=== PATIENT | female | born 1960 | race Caucasian/White ===

== ENCOUNTER 2016-11-06 11:17 | Emergency (ER) | payer MEDICAID ==
[~2016-11-06] VITALS: Ht 167.6 cm; Wt 65.0 kg
[~2016-11-06 11:17] MED LIST: ADDE30XR PO; CYCL1TAB29 PO; CYCL5TAB PO; ESTR1TAB PO; FLUO10TA PO; FLUO20CA4 PO; GABA300C5 PO; HYDR-3366 PO; MORP1CAP79 PO; NITR1CAP36 PO; PROT40TA PO; ZOCO40TA PO
[2016-11-06 11:20] VITALS: BP 143/99; PULSE 99; RESP 20; TEMP 98.3; O2SAT 97
[2016-11-06] MEDS ORDERED: KETOROLAC TROMETHAMINE 60 MG/2 ML (IM) VIAL IM ONE (11:45)
--- NOTE | 2016-11-06 11:53 | PD ---
HPI Chief Complaint: Injury Time Seen by Provider: 11:30 Travel History International Travel<30 days: No Contact w/Intl Traveler<30days: No Traveled to known affect area: No History of Present Illness HPI Patient is a 56 year old female who presented to emergency department for evaluation of right forearm pain. Patient denies any specific injury or trauma but states she could've bumped her arm on her shelf over her bed the night before last. Patient reports her bones break easily secondary to chemotherapy that she was on for rectal cancer. She states she has been applying cool compresses and took her Lortab at home with no relief of symptoms. She reports the pain as a 6 out of 10 and describes it as aching and sore. PFSH Past Medical History ADHD: Yes Arthritis: No Asthma: Yes Autoimmune Disease: No Blood Disorders: No Bipolar Disorder: Yes Anxiety: Yes Depression: Yes Heart Rhythm Problems: No Cancer: Yes (THYROID,OVARIAN,BASAL CELL SKIN,SQUAMOUS CELL RECTAL) Cardiac Catheterization: Yes High Cholesterol: Yes Chemotherapy: Yes Chest Pain: No Congestive Heart Failure: No COPD: Yes Cerebrovascular Accident: No Diabetes: No Diminished Hearing: No Endocrine: No GERD: Yes Glaucoma: No Headaches: No Hepatitis: Yes (c) Hiatal Hernia: No Hypertension: Yes Immune Disorder: No Kidney Stones: No Musculoskeletal: No Reproductive: No Respiratory: Yes Integumentary: Yes (EhlersDanlos syndrome ) Immunizations Current: Yes Migraines: Yes Myocardial Infarction: No Pancreatitis: Yes Radiation Therapy: Yes Renal Failure: No Seizures: No Sickle Cell Disease: No Sleep Apnea: No Thyroid Disease: Yes Ulcer: No PNEUMOCCOCAL Vaccine (Year): 2 Menopausal: Yes : 2 Para: 1 Miscarriage: 1 Past Surgical History Abdominal Surgery: Yes (EXPLORE LAP 1981) AICD: No Appendectomy: Yes Body Medical Devices: CHEMO PORT; (REMOVED 02/11/2011) Cardiac Surgery: No Section: Yes Cholecystectomy: Yes Coronary Artery Bypass Graft: No Ear Surgery: No Endocrine Surgery: Yes (THYROIDECTOMY) Eye Surgery: No Gynecologic Surgery: Yes (BILATERAL OOPHRECTOMY,SALPINGECTOMY) Hysterectomy: Yes (COMPLETE) Insulin Pump: No Joint Replacement: Yes (RIGHT KNEE SURGERY 2001) Neurologic Surgery: Yes (HEAD INJURY WITH left ORBITAL FX SECONDARY TO HORSE KICKED PT ON FACE ) Oral Surgery: No Pacemaker: No Thoracic Surgery: No Other Surgery: Yes ( CHEMO PORT REMOVED) Social History Alcohol Use: No Tobacco Use: No Substance Use: No Allergies-Medications (Allergen,Severity, Reaction): Coded Allergies: Adhesives (Verified Allergy, Severe, BLISTERING OF SKIN, 11/06/16) Aspirin (Verified Allergy, Severe, Wheezing, 11/06/16) Demerol (Verified Allergy, Severe, Wheezing, 11/06/16) Thorazine (Verified Allergy, Severe, CANT BREATHE, 11/06/16) Reported Meds & Prescriptions Reported Meds & Active Scripts Active Flexeril (Cyclobenzaprine HCl) 10 Mg Tab 10 Mg PO TID Reported Fluoxetine (Fluoxetine HCl) 10 Mg Tab 10 Mg PO DAILY Nitrofurantoin Macrocrystal 100 Mg Cap 100 Mg PO DAILY Fluoxetine (Fluoxetine HCl) 20 Mg Cap 20 Mg PO DAILY Protonix (Pantoprazole Sodium) 40 Mg Tab 40 Mg PO DAILY [place] (Hydrocodone-Acetaminophen) 10-325 Mg Tab 1 Tab PO TID PRN Flexeril (Cyclobenzaprine HCl) 5 Mg Tab 5 Mg PO HS Zocor (Simvastatin) 40 Mg Tab 40 Mg PO DAILY [place]eda (Morphine-Naltrexone ER) 20-0.8 Mg Caper 1 Cap PO DAILY Adderall Xr 24 HR (Amphetamine/Dextroamphetamine) 30 Mg Cap 30 Mg PO DAILY Once daily in the morning. Gabapentin 300 Mg Cap 300 Mg PO HS Estradiol 1 Mg Tab 1 Mg PO DAILY Review of Systems Except as stated in HPI: all other systems reviewed are Neg Musculoskeletal: Positive: Edema, Pain Physical Exam Narrative GENERAL: Well-nourished, well-developed patient. SKIN: Warm and dry. HEAD: Normocephalic. EYES: No scleral icterus. No injection or drainage. NECK: Supple, trachea midline. No JVD or lymphadenopathy. CARDIOVASCULAR: Regular rate and rhythm without murmurs, gallops, or rubs. RESPIRATORY: Breath sounds equal bilaterally. No accessory muscle use. GASTROINTESTINAL: Abdomen soft, non-tender, nondistended. MUSCULOSKELETAL: No cyanosis, or edema noted over the dorsal aspect of the right forearm just proximal to the wrist. Mild faint ecchymosis noted in the same area. Positive radial pulse, brisk less than 3 second capillary refill. Full range of motion in right wrist and fingers. 3/5 triage nurse strength on the right. BACK: Nontender without obvious deformity. No CVA tenderness. Data Data Last Documented VS Vital Signs Date Time Temp Pulse Resp B/P Pulse Ox O2 Delivery O2 Flow Rate FiO2 11/06/16 11:20 98.3 99 20 143/99 97 Room Air Orders Forearm (2vws) (11/06/16 ) Ketorolac Inj (Toradol Inj) (11/06/16 11:45) MDM Medical Decision Making Medical Screen Exam Complete: Yes Emergency Medical Condition: Yes Interpretation(s) Vital Signs Date Time Temp Pulse Resp B/P Pulse Ox O2 Delivery O2 Flow Rate FiO2 11/06/16 11:20 98.3 99 20 143/99 97 Room Air Differential Diagnosis Contusion versus sprain versus strain versus fracture versus other Narrative Course Patient is a 56-year-old female who presents for reevaluation of right forearm pain and swelling is ongoing for approximately 2 days now. Patient no definitive injury or trauma. There is some mild soft tissue swelling to the dorsal aspect of the right forearm. Imaging was ordered due to patient's history of easily broken bones and chemotherapy. Imaging of the right forearm negative for acute fracture. Patient given Toradol for pain in the emergency department. She is encouraged follow-up with her primary doctor, alternate heat and ice to affected area, avoid exacerbating activities. She verbalized understanding of these instructions. Patient stable for discharge. Diagnosis Primary Impression: Right forearm pain Referrals: Primary Care Physician Patient Instructions: Arm Pain (ED), General Instructions Additional Instructions: Return to emergency department immediately for any new or worsening symptoms Alternate heat and ice to affected area Take acetaminophen as needed and as directed for pain Follow-up with your primary doctor Med/Other Pt SpecificInfo: No Change to Meds Disposition: 01 DISCHARGE HOME Condition: Stable Anita Matute Nov 06, 2016 11:53
--- NOTE | 2016-11-06 12:04 | RADRPT ---
EXAM DATE/TIME: 11/06/2016 12:08 [facility] COMPARISON: No previous studies available for comparison. INDICATIONS : Right arm pain and swelling. No known trauma. MEDICAL HISTORY : Osteoporosis. SURGICAL HISTORY : None. ENCOUNTER: Initial ACUITY: 2 days PAIN SCORE: 10/10 LOCATION: Right Arm. FINDINGS: Two view examination of the right forearm demonstrates no evidence of fracture or dislocation. Bony mineralization is normal. The soft tissue structures are intact. CONCLUSION: Unremarkable examination of the right forearm. Jorje Gong MD on November 06, 2016 at 12:02 Board Certified Radiologist. This report was verified electronically.
== END 2016-11-06 12:38 | disposition home or self-care (01) ==
LOC: NEPB 11:17
DX: M79.631 Pain in right forearm (principal); J44.9 Chronic obstructive pulmonary disease, unspecified; I10 Essential (primary) hypertension
CPT/HCPCS: 73090; 96372; 99283; J1885

== ENCOUNTER 2016-11-19 12:10 | Emergency (ER) | payer MEDICAID ==
[~2016-11-19] VITALS: Ht 167.6 cm; Wt 63.0 kg
[2016-11-19 12:11] VITALS: BP 152/64; PULSE 87; RESP 14; TEMP 98.2; O2SAT 94
== END 2016-11-19 13:11 | disposition left against medical advice (07) ==
LOC: NED 12:10
DX: R68.89 Other general symptoms and signs (principal); Z53.21 Procedure and treatment not carried out due to patient leaving prior to being seen by health care provider
CPT/HCPCS: 99281

== ENCOUNTER 2017-09-16 03:56 | Emergency (ER) | payer MEDICAID ==
[~2017-09-16] VITALS: Ht 170.2 cm; Wt 80.0 kg
[~2017-09-16 03:56] MED LIST changes: +CYCL10TA PO; -CYCL1TAB29 PO
[2017-09-16 04:00] VITALS: BP 142/73; PULSE 90; RESP 16; TEMP 98.5; O2SAT 99
[2017-09-16] MEDS ORDERED: SODIUM CHLOR 0.9% 1000 ML INJ 1,000 ML IV ONE (04:42)
[2017-09-16] MEDS ORDERED: SODIUM CHLORIDE 0.9% FLUSH 10 ML FLUSH IVF PRN (04:45)
[2017-09-16] MEDS ORDERED: diphenhydrAMINE HCL 50 MG/ML VIAL IVP ONE (04:45)
[2017-09-16] MEDS ORDERED: MORPHINE SULFATE 8 MG/ML INJ IV PUSH ONE (04:45)
[2017-09-16] MEDS ORDERED: METOCLOPRAMIDE HCL 10 MG/2 ML VIAL IVP ONE ×2 (04:45)
--- NOTE | 2017-09-16 04:47 | PD ---
HPI Chief Complaint: Headache Time Seen by Provider: 04:30 Travel History International Travel<30 days: No Contact w/Intl Traveler<30days: No Traveled to known affect area: No History of Present Illness HPI 56-year-old female presents for evaluation of headache. Symptoms started 2 days ago. She describes a sharp right-sided headache which is constant, gradually worsening, not thunderclap in nature. She endorses associated nausea , tenderness posterior to her right ear. She takes Percocet and Flexeril for chronic pain and this is not helping which prompted evaluation. Denies vomiting , fever or chill, cough or congestion, sore throat, rash or recent travel, recent illness. Denies any head trauma. No other complaints at this time. PFSH Past Medical History ADHD: Yes Arthritis: No Asthma: Yes Autoimmune Disease: No Blood Disorders: No Bipolar Disorder: Yes Anxiety: Yes Depression: Yes Heart Rhythm Problems: No Cancer: Yes (THYROID,OVARIAN,BASAL CELL SKIN,SQUAMOUS CELL RECTAL) Cardiac Catheterization: Yes Cardiovascular Problems: Yes (CARDIAC CATH IN 2008) High Cholesterol: Yes Chemotherapy: Yes (NOT ACTIVELY) Chest Pain: No Congestive Heart Failure: No COPD: Yes Cerebrovascular Accident: No Diabetes: No Diminished Hearing: No Endocrine: No Gastrointestinal Disorders: Yes (pancreatitis) GERD: Yes Glaucoma: No Genitourinary: Yes (UTI; FREQUENT) Headaches: No Hepatitis: Yes (c) Hiatal Hernia: No Hypertension: Yes Immune Disorder: No Kidney Stones: No Musculoskeletal: No Reproductive: No Respiratory: Yes (COPD) Integumentary: Yes (EhlersDanlos syndrome ) Immunizations Current: Yes Migraines: Yes Myocardial Infarction: No Pancreatitis: Yes Radiation Therapy: Yes Renal Failure: No Seizures: No Sickle Cell Disease: No Sleep Apnea: No Thyroid Disease: Yes Ulcer: No Tetanus Vaccination: < 5 Years Influenza Vaccination: No PNEUMOCCOCAL Vaccine (Year): 2 Menopausal: Yes : 2 Para: 1 Miscarriage: 1 Past Surgical History Abdominal Surgery: Yes (EXPLORE LAP 1981) AICD: No Appendectomy: Yes Body Medical Devices: CHEMO PORT; (REMOVED 02/11/2011) Cardiac Surgery: No Section: Yes Cholecystectomy: Yes Coronary Artery Bypass Graft: No Coronary Stent: Yes Ear Surgery: No Endocrine Surgery: Yes (THYROIDECTOMY) Eye Surgery: No Gynecologic Surgery: Yes (BILATERAL OOPHRECTOMY,SALPINGECTOMY) Hysterectomy: Yes (COMPLETE) Insulin Pump: No Joint Replacement: Yes (RIGHT KNEE SURGERY 2001) Neurologic Surgery: Yes (HEAD INJURY WITH left ORBITAL FX SECONDARY TO HORSE KICKED PT ON FACE ) Oral Surgery: No Pacemaker: No Thoracic Surgery: No Other Surgery: Yes ( CHEMO PORT REMOVED) Social History Alcohol Use: No Tobacco Use: No Substance Use: No Allergies-Medications (Allergen,Severity, Reaction): Coded Allergies: adhesive (Unverified Allergy, Severe, BLISTERING OF SKIN, 09/16/17) aspirin (Unverified Allergy, Severe, Wheezing, 09/16/17) chlorpromazine (Unverified Allergy, Severe, CANT BREATHE, 09/16/17) meperidine (Unverified Allergy, Severe, Wheezing, 09/16/17) Reported Meds & Prescriptions Reported Meds & Active Scripts Active Flexeril (Cyclobenzaprine HCl) 10 Mg Tab 10 Mg PO TID Reported Fluoxetine (Fluoxetine HCl) 10 Mg Tab 10 Mg PO DAILY Nitrofurantoin Macrocrystal 100 Mg Cap 100 Mg PO DAILY Fluoxetine (Fluoxetine HCl) 20 Mg Cap 20 Mg PO DAILY Protonix (Pantoprazole Sodium) 40 Mg Tab 40 Mg PO DAILY [place] (Hydrocodone-Acetaminophen) 10-325 Mg Tab 1 Tab PO TID PRN Flexeril (Cyclobenzaprine HCl) 5 Mg Tab 5 Mg PO HS Zocor (Simvastatin) 40 Mg Tab 40 Mg PO DAILY [place]eda (Morphine-Naltrexone ER) 20-0.8 Mg Caper 1 Cap PO DAILY Adderall Xr 24 HR (Amphetamine/Dextroamphetamine) 30 Mg Cap 30 Mg PO DAILY Once daily in the morning. Gabapentin 300 Mg Cap 300 Mg PO HS Estradiol 1 Mg Tab 1 Mg PO DAILY Review of Systems Except as stated in HPI: all other systems reviewed are Neg Physical Exam Narrative GENERAL: Well-nourished female in no acute distress ambulatory in the ED. SKIN: Warm and dry. HEAD: Atraumatic. Normocephalic. EYES: Pupils equal and round. No scleral icterus. No injection or drainage. ENT: No nasal bleeding or discharge. Mucous membranes pink and moist. There is some tenderness to palpation to the right lateral posterior scalp region with no obvious deformity. NECK: Trachea midline. No JVD. CARDIOVASCULAR: Regular rate and rhythm. No murmur appreciated. RESPIRATORY: No accessory muscle use. Clear to auscultation. Breath sounds equal bilaterally. GASTROINTESTINAL: Abdomen soft, non-tender, nondistended. Hepatic and splenic margins not palpable. MUSCULOSKELETAL: No obvious deformities. No clubbing. No cyanosis. No edema. NEUROLOGICAL: Awake and alert. No obvious cranial nerve deficits. Motor grossly within normal limits. Normal speech. PSYCHIATRIC: Appropriate mood and affect; insight and judgment normal. Data Data Last Documented VS Vital Signs Date Time Temp Pulse Resp B/P (MAP) Pulse Ox O2 Delivery O2 Flow Rate FiO2 09/16/17 04:00 98.5 90 16 142/73 (96) 99 Orders Orders Complete Blood Count With Diff (09/16/17 04:42) Basic Metabolic Panel (Bmp) (09/16/17 04:42) Ct Brain W/O Iv Contrast(Rout) (09/16/17 04:42) Ecg Monitoring (09/16/17 04:42) Iv Access Insert/Monitor (09/16/17 04:42) Oximetry (09/16/17 04:42) Sodium Chloride 0.9% Flush (Ns Flush) (09/16/17 04:45) Diphenhydramine Inj (Benadryl Inj) (09/16/17 04:45) Metoclopramide Inj (Reglan Inj) (09/16/17 04:45) Metoclopramide Inj (Reglan Inj) (09/16/17 04:45) Sodium Chlor 0.9% 1000 Ml Inj (Ns 1000 M (09/16/17 04:42) Morphine Inj (Morphine Inj) (09/16/17 04:45) Ed Discharge Order (09/16/17 05:43) Labs Laboratory Tests Test 09/16/17 05:00 White Blood Count 8.7 TH/MM3 Red Blood Count 4.70 MIL/MM3 Hemoglobin 14.1 GM/DL Hematocrit 40.0 % Mean Corpuscular Volume 85.2 FL Mean Corpuscular Hemoglobin 30.1 PG Mean Corpuscular Hemoglobin Concent 35.3 % Red Cell Distribution Width 12.5 % Platelet Count 316 TH/MM3 Mean Platelet Volume 6.3 FL Neutrophils (%) (Auto) 69.3 % Lymphocytes (%) (Auto) 20.7 % Monocytes (%) (Auto) 7.2 % Eosinophils (%) (Auto) 2.2 % Basophils (%) (Auto) 0.6 % Neutrophils # (Auto) 6.0 TH/MM3 Lymphocytes # (Auto) 1.8 TH/MM3 Monocytes # (Auto) 0.6 TH/MM3 Eosinophils # (Auto) 0.2 TH/MM3 Basophils # (Auto) 0.1 TH/MM3 CBC Comment DIFF FINAL Differential Comment Blood Urea Nitrogen 9 MG/DL Creatinine 0.58 MG/DL Random Glucose 93 MG/DL Calcium Level 8.8 MG/DL Sodium Level 139 MEQ/L Potassium Level 3.8 MEQ/L Chloride Level 105 MEQ/L Carbon Dioxide Level 26.0 MEQ/L Anion Gap 8 MEQ/L Estimat Glomerular Filtration Rate 108 ML/MIN MDM Medical Decision Making Medical Screen Exam Complete: Yes Emergency Medical Condition: Yes Medical Record Reviewed: Yes Differential Diagnosis Migraine, tension headache, cluster headache, temporal arteritis, subarachnoid hemorrhage, intracranial mass Narrative Course 56-year-old female with 2 days of right-sided headache. She has no focal neurologic deficits. The patient will be placed on ECG monitoring pulse oximetry. Plan is for basic lab work, CT the brain. She will be given IV fluids, Reglan, morphine. She reports that she is unable to take NSAIDs. Upon reexamination she feels significantly improved. Her lab work imaging studies are unremarkable. She is stable for discharge. Diagnosis Primary Impression: Headache Additional Instructions: Follow-up close with primary care physician. Return for any emergent medical conditions. Med/Other Pt SpecificInfo: No Change to Meds Disposition: 01 DISCHARGE HOME Condition: Stable Kevin Maria Sep 16, 2017 04:46
[2017-09-16 05:14] LABS: BASOPHIL # 0.1 TH/MM3 (0-0.2); BASOPHIL % 0.6 % (0.0-2.0); EOSINOPHIL # 0.2 TH/MM3 (0-0.4); EOSINOPHIL % 2.2 % (0.0-4.0); HEMO FLAGS DIFF FINAL; LYMPH % 20.7 % (9.0-44.0); LYMPHOCYTE # 1.8 TH/MM3 (1.0-4.8); MEAN CELL VOLUME 85.2 FL (80.0-100.0); MEAN CORPUSCULAR HEMOGLOBIN 30.1 PG (27.0-34.0); MEAN CORPUSCULAR HGB CONC 35.3 % (32.0-36.0); MONO % 7.2 % (0.0-8.0); NEUT % 69.3 % (16.0-70.0); PLATELET COUNT 316 TH/MM3 (150-450); RED CELL DISTRIBUTION WIDTH 12.5 % (11.6-17.2); WHITE BLOOD COUNT 8.7 TH/MM3 (4.0-11.0)
--- NOTE | 2017-09-16 05:19 | RADRPT ---
EXAM DATE/TIME: 09/16/2017 05:01 [facility] COMPARISON: CT BRAIN W/O CONTRAST, September 01, 2016, 20:05. INDICATIONS : Cephalgia. RADIATION DOSE: 35.36 CTDIvol (mGy) MEDICAL HISTORY : Cardiovascular disease. Hypertension. SURGICAL HISTORY : None. ENCOUNTER: Initial ACUITY: 1 day PAIN SCALE: 5/10 LOCATION: Bilateral cranial TECHNIQUE: Multiple contiguous axial images were obtained of the head. Using automated exposure control and adj ustment of the mA and/or kV according to patient size, radiation dose was kept as low as reasonably a chievable to obtain optimal diagnostic quality images. DICOM format image data is available electro nically for review and comparison. FINDINGS: CEREBRUM: The ventricles are normal for age. No evidence of midline shift, mass lesion, hemorrhage or acute in farction. No extra-axial fluid collections are seen. POSTERIOR FOSSA: The cerebellum and brainstem are intact. The 4th ventricle is midline. The cerebellopontine angle i s unremarkable. EXTRACRANIAL: The visualized portion of the orbits is intact. SKULL: The calvaria is intact. No evidence of skull fracture. CONCLUSION: Negative. Live Sadler MD on September 16, 2017 at 5:16 Board Certified Radiologist. This report was verified electronically.
[2017-09-16 05:37] LABS: POTASSIUM 3.8 MEQ/L (3.5-5.1)
== END 2017-09-16 06:14 | disposition home or self-care (01) ==
LOC: NEPD 03:56
DX: R51 Headache (principal); R11.0 Nausea; F90.9 Attention-deficit hyperactivity disorder, unspecified type; F31.9 Bipolar disorder, unspecified; J44.9 Chronic obstructive pulmonary disease, unspecified; I10 Essential (primary) hypertension; Q79.6 Ehlers-Danlos syndromes; E78.00 Pure hypercholesterolemia, unspecified; Z87.19 Personal history of other diseases of the digestive system
CPT/HCPCS: 70450; 80048; 85025; 96361; 96374; 96375; 99285; J1200; J2270; J2765; J7030

== ENCOUNTER 2017-09-25 15:11 | Emergency (ER) | payer MEDICAID ==
[2017-09-25 15:13] VITALS: BP 143/87; PULSE 99; RESP 17; TEMP 98.7; O2SAT 99
--- NOTE | 2017-09-25 15:37 | PD ---
HPI Chief Complaint: Bite or Sting Time Seen by Provider: 15:36 Travel History International Travel<30 days: No Contact w/Intl Traveler<30days: No Traveled to known affect area: No History of Present Illness HPI 56y female presents to the ED with a bite to her right distal finger and right ear helix that occurred yesterday at 3 PM. States she has a baby prairie dog she is trying to train and it bit her in 2 places. Today she presents because she is concerned about a developing infection of her right finger. States there is a streak on her finger and it is throbbing. States she has been using peroxide and water to cleanse the site. She did try to get in with a primary care however, they are busy and she was unable to go. Patient denies fever or chills. Patient has remote history of chemotherapy and radiation therapy. PFSH Past Medical History ADHD: Yes Arthritis: No Asthma: Yes Autoimmune Disease: No Blood Disorders: No Bipolar Disorder: Yes Anxiety: Yes Depression: Yes Heart Rhythm Problems: No Cancer: Yes (THYROID,OVARIAN,BASAL CELL SKIN,SQUAMOUS CELL RECTAL) Cardiac Catheterization: Yes Cardiovascular Problems: Yes (CARDIAC CATH IN 2008) High Cholesterol: Yes Chemotherapy: Yes (NOT ACTIVELY) Chest Pain: No Congestive Heart Failure: No COPD: Yes Cerebrovascular Accident: No Diabetes: No Diminished Hearing: No Endocrine: No Gastrointestinal Disorders: Yes (pancreatitis) GERD: Yes Glaucoma: No Genitourinary: Yes (UTI; FREQUENT) Headaches: No Hepatitis: Yes (c) Hiatal Hernia: No Hypertension: Yes Immune Disorder: No Kidney Stones: No Musculoskeletal: No Reproductive: No Respiratory: Yes (COPD) Integumentary: Yes (EhlersDanlos syndrome ) Immunizations Current: Yes Migraines: Yes Myocardial Infarction: No Pancreatitis: Yes Radiation Therapy: Yes Renal Failure: No Seizures: No Sickle Cell Disease: No Sleep Apnea: No Thyroid Disease: Yes Ulcer: No PNEUMOCCOCAL Vaccine (Year): 2 Menopausal: Yes : 2 Para: 1 Miscarriage: 1 Past Surgical History Abdominal Surgery: Yes (EXPLORE LAP 1981) AICD: No Appendectomy: Yes Body Medical Devices: CHEMO PORT; (REMOVED 02/11/2011) Cardiac Surgery: No Section: Yes Cholecystectomy: Yes Coronary Artery Bypass Graft: No Coronary Stent: Yes Ear Surgery: No Endocrine Surgery: Yes (THYROIDECTOMY) Eye Surgery: No Gynecologic Surgery: Yes (BILATERAL OOPHRECTOMY,SALPINGECTOMY) Hysterectomy: Yes (COMPLETE) Insulin Pump: No Joint Replacement: Yes (RIGHT KNEE SURGERY 2001) Neurologic Surgery: Yes (HEAD INJURY WITH left ORBITAL FX SECONDARY TO HORSE KICKED PT ON FACE ) Oral Surgery: No Pacemaker: No Thoracic Surgery: No Other Surgery: Yes ( CHEMO PORT REMOVED) Social History Alcohol Use: No Tobacco Use: No Substance Use: No Allergies-Medications (Allergen,Severity, Reaction): Coded Allergies: adhesive (Unverified Allergy, Severe, BLISTERING OF SKIN, 09/25/17) aspirin (Unverified Allergy, Severe, Wheezing, 09/25/17) chlorpromazine (Unverified Allergy, Severe, CANT BREATHE, 09/25/17) meperidine (Unverified Allergy, Severe, Wheezing, 09/25/17) gabapentin (Verified Allergy, Unknown, 09/25/17) Reported Meds & Prescriptions Reported Meds & Active Scripts Active Augmentin (Amoxicillin-Clavulanate) 875-125 Mg Tab 1 Tab PO BID 10 Days Flexeril (Cyclobenzaprine HCl) 10 Mg Tab 10 Mg PO TID Reported Fluoxetine (Fluoxetine HCl) 10 Mg Tab 10 Mg PO DAILY Protonix (Pantoprazole Sodium) 40 Mg Tab 40 Mg PO DAILY [place] (Hydrocodone-Acetaminophen) 10-325 Mg Tab 1 Tab PO TID PRN Zocor (Simvastatin) 40 Mg Tab 40 Mg PO DAILY Adderall Xr 24 HR (Amphetamine/Dextroamphetamine) 30 Mg Cap 30 Mg PO DAILY Once daily in the morning. Review of Systems Except as stated in HPI: all other systems reviewed are Neg Physical Exam Narrative GENERAL: Well-developed well-nourished in no apparent distress SKIN: Focused skin assessment warm/dry. HEAD: Atraumatic. Normocephalic. EYES: Pupils equal and round. No scleral icterus. No injection or drainage. NECK: Trachea midline. No JVD. CARDIOVASCULAR: Regular rate and rhythm. No murmur appreciated. RESPIRATORY: No accessory muscle use. Clear to auscultation. Breath sounds equal bilaterally. GASTROINTESTINAL: Abdomen soft, non-tender, nondistended. Hepatic and splenic margins not palpable. MUSCULOSKELETAL: No obvious deformities. No clubbing. No cyanosis. No edema. Right distal finger- obvious bites to the distal finger. Bleeding controlled. No fluctuance. Mild erythema without lymphangitic Spread. Vascularly intact. Right ear helix- puncture wound through and through without evidence of foreign body. No edema, erythema or exudate NEUROLOGICAL: Awake and alert. No obvious cranial nerve deficits. Motor grossly within normal limits. Normal speech. PSYCHIATRIC: Appropriate mood and affect; insight and judgment normal. Data Data Last Documented VS Vital Signs Date Time Temp Pulse Resp B/P (MAP) Pulse Ox O2 Delivery O2 Flow Rate FiO2 09/25/17 17:30 09/25/17 15:13 98.7 99 17 99 Room Air Orders Orders Clindamycin Inj (Cleocin Inj) (09/25/17 16:30) Ed Discharge Order (09/25/17 16:40) [facility] Medical Decision Making Medical Screen Exam Complete: Yes Emergency Medical Condition: Yes Differential Diagnosis Right distal finger bite, avulsion, abrasion Right ear helix avulsion, puncture, abrasion, right Narrative Course 56y female presents to the ED with a bite to her right distal finger and right ear helix that occurred yesterday at 3 PM. States she has a baby prairie dog she is trying to train and it bit her in 2 places. Today she presents because she is concerned about a developing infection of her right finger. States there is a streak on her finger and it is throbbing. States she has been using peroxide and water to cleanse the site. She did try to get in with a primary care however, they are busy and she was unable to go. Patient denies fever or chills. Patient has remote history of chemotherapy and radiation therapy. Vital signs stable Physical exam consistent with a developing cellulitis of the right distal index finger. No evidence of abscess at this time. Patient will be discharged with Augmentin with close follow-up with a primary care physician. Advised strict return instructions and patient states that she will comply. Diagnosis Primary Impression: Animal bite Referrals: Primary Care Physician Additional Instructions: Follow-up with primary care physician within 2-3 days. If your finger has more painful, swollen, or you develop pus return to the emergency department. Take all medication as prescribed Scripts Amoxicillin-Clavulanate (Augmentin) 875-125 Mg Tab 1 TAB PO BID for Infection for 10 Days, #20 TAB 0 Refills Prov: Deisy Alcaraz 09/25/17 Disposition: 01 DISCHARGE HOME Condition: Stable Deisy Alcaraz Sep 25, 2017 15:37
[2017-09-25] MEDS ORDERED: BACT800T5 PO (16:26)
[2017-09-25] MEDS ORDERED: CLINDAMYCIN PHOS 600 MG/4 ML VIAL IM ONE (16:30)
[2017-09-25] MEDS ORDERED: AUGM875T3 PO (16:46)
== END 2017-09-25 17:30 | disposition home or self-care (01) ==
LOC: NEPD 15:11
DX: S61.259A Open bite of unspecified finger without damage to nail, initial encounter (principal); S01.351A Open bite of right ear, initial encounter; E78.00 Pure hypercholesterolemia, unspecified; F31.9 Bipolar disorder, unspecified; F90.9 Attention-deficit hyperactivity disorder, unspecified type; K21.9 Gastro-esophageal reflux disease without esophagitis; W55.81XA Bitten by other mammals, initial encounter; Y93.K9 Activity, other involving animal care
CPT/HCPCS: 96372

== ENCOUNTER 2017-10-08 15:19 | Emergency (ER) | payer MEDICAID ==
[~2017-10-08] VITALS: Ht 167.6 cm; Wt 72.0 kg
[~2017-10-08 15:19] MED LIST changes: +AUGM875T3 PO; -CYCL5TAB PO; -ESTR1TAB PO; -FLUO20CA4 PO; -GABA300C5 PO; -MORP1CAP79 PO; -NITR1CAP36 PO
[2017-10-08 15:22] VITALS: BP 144/82; PULSE 82; RESP 18; TEMP 98.9; O2SAT 98
[2017-10-08] MEDS ORDERED: KETOROLAC TROMETHAMINE 60 MG/2 ML (IM) VIAL IM ONE (16:00)
[2017-10-08] MEDS ORDERED: PROMETHAZINE INJ 25 MG/ML VIAL IM ONE (16:00)
[2017-10-08] MEDS ORDERED: METOCLOPRAMIDE HCL 10 MG/2 ML VIAL IM ONE (16:00)
--- NOTE | 2017-10-08 16:07 | PD ---
HPI Chief Complaint: Headache Time Seen by Provider: 15:36 Travel History International Travel<30 days: No Contact w/Intl Traveler<30days: No Traveled to known affect area: No History of Present Illness HPI The patient was seen and examined in the presence of the nurse. This patient complains of headache. She has a right sided frontal and temporal headache. Started yesterday. No injury or thunderclap onset or fever. Patient has chronic pain and is treated by neurology for this with hydrocodone and muscle relaxers. She says she is going to get some sort of scalp injection for this problem in the near future. Severity is moderate, no alleviating factors PFSH Past Medical History ADHD: Yes Arthritis: No Asthma: Yes Autoimmune Disease: No Blood Disorders: No Bipolar Disorder: Yes Anxiety: Yes Depression: Yes Heart Rhythm Problems: No Cancer: Yes (THYROID,OVARIAN,BASAL CELL SKIN,SQUAMOUS CELL RECTAL) Cardiac Catheterization: Yes Cardiovascular Problems: Yes (CARDIAC CATH IN 2008) High Cholesterol: Yes Chemotherapy: Yes (NOT ACTIVELY) Chest Pain: No Congestive Heart Failure: No COPD: Yes Cerebrovascular Accident: No Diabetes: No Diminished Hearing: No Endocrine: No Gastrointestinal Disorders: Yes (pancreatitis) GERD: Yes Glaucoma: No Genitourinary: Yes (UTI; FREQUENT) Headaches: No Hepatitis: Yes (c) Hiatal Hernia: No Hypertension: Yes Immune Disorder: No Kidney Stones: No Musculoskeletal: No Neurologic: Yes Psychiatric: Yes Reproductive: No Respiratory: Yes (COPD) Integumentary: Yes (EhlersDanlos syndrome ) Immunizations Current: Yes Migraines: Yes Myocardial Infarction: No Pancreatitis: Yes Radiation Therapy: Yes Renal Failure: No Seizures: No Sickle Cell Disease: No Sleep Apnea: No Thyroid Disease: Yes Ulcer: No Influenza Vaccination: No PNEUMOCCOCAL Vaccine (Year): 2 ?: Not Menopausal: Yes : 2 Para: 1 Miscarriage: 1 Past Surgical History Abdominal Surgery: Yes (EXPLORE LAP 1981) AICD: No Appendectomy: Yes Body Medical Devices: CHEMO PORT; (REMOVED 02/11/2011) Cardiac Surgery: No Section: Yes Cholecystectomy: Yes Coronary Artery Bypass Graft: No Coronary Stent: Yes Ear Surgery: No Endocrine Surgery: Yes (THYROIDECTOMY) Eye Surgery: No Gynecologic Surgery: Yes (BILATERAL OOPHRECTOMY,SALPINGECTOMY) Hysterectomy: Yes Insulin Pump: No Joint Replacement: Yes (RIGHT KNEE SURGERY 2001) Neurologic Surgery: Yes (HEAD INJURY WITH left ORBITAL FX SECONDARY TO HORSE KICKED PT ON FACE ) Oral Surgery: No Pacemaker: No Thoracic Surgery: No Other Surgery: Yes ( CHEMO PORT REMOVED) Social History Alcohol Use: No Tobacco Use: No Substance Use: No Allergies-Medications (Allergen,Severity, Reaction): Coded Allergies: adhesive (Unverified Allergy, Severe, BLISTERING OF SKIN, 09/25/17) aspirin (Unverified Allergy, Severe, Wheezing, 09/25/17) chlorpromazine (Unverified Allergy, Severe, CANT BREATHE, 09/25/17) meperidine (Unverified Allergy, Severe, Wheezing, 09/25/17) gabapentin (Verified Allergy, Unknown, 09/25/17) Reported Meds & Prescriptions Reported Meds & Active Scripts Active Augmentin (Amoxicillin-Clavulanate) 875-125 Mg Tab 1 Tab PO BID 10 Days Flexeril (Cyclobenzaprine HCl) 10 Mg Tab 10 Mg PO TID Reported Fluoxetine (Fluoxetine HCl) 10 Mg Tab 10 Mg PO DAILY Protonix (Pantoprazole Sodium) 40 Mg Tab 40 Mg PO DAILY [place] (Hydrocodone-Acetaminophen) 10-325 Mg Tab 1 Tab PO TID PRN Zocor (Simvastatin) 40 Mg Tab 40 Mg PO DAILY Adderall Xr 24 HR (Amphetamine/Dextroamphetamine) 30 Mg Cap 30 Mg PO DAILY Once daily in the morning. Review of Systems General / Constitutional: No: Fever HENT: Positive: Headaches Cardiovascular: No: Chest Pain or Discomfort Gastrointestinal: Positive: Nausea Physical Exam Narrative NEUROLOGICAL: Awake and alert. Pupils are equal round and reactive. Motor and sensory grossly within normal limits. Five out of 5 muscle strength in all muscle groups. Normal speech. GASTROINTESTINAL: Abdomen soft, non-tender, nondistended. Positive bowel sounds. No hepato-splenomegaly, or palpable masses. No guarding. SKIN: Focused skin assessment reveals no rash or ulcers. Skin is warm and dry. Palpation shows no induration or nodules. NECK: Symmetrical appearance, midline trachea. No mass or crepitus. Thyroid without enlargement, tenderness, or mass. Data Data Last Documented VS Vital Signs Date Time Temp Pulse Resp B/P (MAP) Pulse Ox O2 Delivery O2 Flow Rate FiO2 10/08/17 15:46 Room Air 10/08/17 15:22 98.9 82 18 144/82 (102) 98 Orders Orders Promethazine Inj (Phenergan Inj) (10/08/17 16:00) Ketorolac Inj (Toradol Inj) (10/08/17 16:00) Metoclopramide Inj (Reglan Inj) (10/08/17 16:00) [facility] Medical Decision Making Medical Screen Exam Complete: Yes Emergency Medical Condition: Yes Medical Record Reviewed: Yes Differential Diagnosis Differential diagnosis includes migraine, tension headache, cluster headache, meningitis. Narrative Course I have reviewed the patient's electronic medical record. Patient was here for headache 2 weeks ago and had extensive workup including brain CT which was negative I don't think another workup here is indicated. She is neurologically intact. Presentation not consistent with subarachnoid hemorrhage I gave her injection of Toradol and Phenergan and Reglan Patient knows all of these by name and has had them before and can tolerate them Diagnosis Primary Impression: Headache Qualified Codes: R51 - Headache Additional Instructions: The patient was advised to follow up with their physician and return if they worsen. Med/Other Pt SpecificInfo: Other Disposition: 01 DISCHARGE HOME Condition: Stable Irving Hart MD Oct 08, 2017 16:06
== END 2017-10-08 18:49 | disposition home or self-care (01) ==
LOC: NEPD 15:19
DX: R51 Headache (principal); E78.00 Pure hypercholesterolemia, unspecified; F90.9 Attention-deficit hyperactivity disorder, unspecified type; F31.9 Bipolar disorder, unspecified; G89.29 Other chronic pain; K21.9 Gastro-esophageal reflux disease without esophagitis
CPT/HCPCS: 96372; 99284; J1885; J2550; J2765

== ENCOUNTER 2017-12-03 12:39 | Emergency (ER) | payer MEDICAID ==
[2017-12-03 12:41] VITALS: BP 132/71; PULSE 77; RESP 18; TEMP 98.2; O2SAT 97
--- NOTE | 2017-12-03 13:34 | RADRPT ---
EXAM DATE/TIME: 12/03/2017 12:55 [facility] COMPARISON: No previous studies available for comparison. INDICATIONS : Left ankle pain, no known trauma MEDICAL HISTORY : hx of Светлана-Danlos syndrome SURGICAL HISTORY : None. ENCOUNTER: Initial ACUITY: 3 weeks PAIN SCORE: 10/10 LOCATION: Left ankle FINDINGS: Three view exam was performed of the left ankle. The bony structures are in normal alignment. No ev idence of fracture, dislocation, or soft tissue swelling. The ankle mortise is intact. No radiopaqu e foreign bodies are seen. Bony mineralization is normal. CONCLUSION: Negative examination. Eduard Queen MD on December 03, 2017 at 13:32 Board Certified Radiologist. This report was verified electronically.
[2017-12-03 13:41] LABS: AUTOMATED NEUTROPHIL # 9.5 TH/MM3 (1.8-7.7); BASOPHIL % 0.2 % (0.0-2.0); EOSINOPHIL # 0.2 TH/MM3 (0-0.4); EOSINOPHIL % 1.4 % (0.0-4.0); HEMATOCRIT 44.4 % (35.0-46.0); HEMOGLOBIN 15.3 GM/DL (11.6-15.3); LYMPH % 10.2 % (9.0-44.0); LYMPHOCYTE # 1.2 TH/MM3 (1.0-4.8); MEAN CELL VOLUME 84.9 FL (80.0-100.0); MEAN CORPUSCULAR HEMOGLOBIN 29.3 PG (27.0-34.0); MEAN CORPUSCULAR HGB CONC 34.5 % (32.0-36.0); MEAN PLATELET VOLUME 6.8 FL (7.0-11.0); MONOCYTE # 0.6 TH/MM3 (0-0.9); NEUT % 83.2 % (16.0-70.0); PLATELET COUNT 360 TH/MM3 (150-450); RED BLOOD COUNT 5.23 MIL/MM3 (4.00-5.30); RED CELL DISTRIBUTION WIDTH 12.9 % (11.6-17.2); WHITE BLOOD COUNT 11.4 TH/MM3 (4.0-11.0)
[2017-12-03 13:55] LABS: PROTHROMBIN TIME - PATIENT 9.7 SEC (9.8-11.6)
[2017-12-03 14:05] LABS: ALBUMIN 3.7 GM/DL (3.4-5.0); AST (GOT) 20 U/L (15-37); BICARBONATE 26.1 MEQ/L (21.0-32.0); BLOOD UREA NITROGEN 14 MG/DL (7-18); CHLORIDE 107 MEQ/L (98-107); CREATININE 0.53 MG/DL (0.50-1.00); GLOMERULAR FILTRATION RATE 119 ML/MIN (>89); GLUCOSE,RANDOM 94 MG/DL (74-106); SODIUM (NA) 141 MEQ/L (136-145)
[2017-12-03 14:06] LABS: ALT (GPT) 27 U/L (10-53)
[2017-12-03 14:09] LABS: ALKALINE PHOSPHATASE 138 U/L (45-117); TOTAL BILIRUBIN ADULT 1.4 MG/DL (0.2-1.0); TOTAL PROTEIN 7.4 GM/DL (6.4-8.2)
[2017-12-03] MEDS ORDERED: NAPR-855 PO (14:25)
--- NOTE | 2017-12-03 14:38 | PD ---
HPI Chief Complaint: Medical Clearance Time Seen by Provider: 14:22 Travel History International Travel<30 days: No Contact w/Intl Traveler<30days: No Traveled to known affect area: No History of Present Illness HPI 57-year-old female presents to emergency department with 2 different complaints. Complaining of left ankle pain 3 weeks. Says she has history of allergies Danlos and her ankle popped out of the socket while she was walking. Pain is to the lateral aspect. Has been using a walker and cane for support. Symptoms are mild in severity. Has been taking naproxen for symptom management. Her second complaint is onset of vomiting, fever, chills since midnight last night. T-max of 99.0. Reports hematochezia and hematocrit emesis. Reports diarrhea. Reports epigastric abdominal pain. Says she thinks her bleeding is due to taking the naproxen. She was told by her GI doctor to not take NSAIDs but she has been taking it for pain. She has history of cholecystectomy and GERD. Has not taken any medications or tried any treatments to alleviate her symptoms. No known relieving factors. Primary care provider is Dr. Parikh. Dr. Mathew his computer numerical control programmer. Dr. Sifuentes is pain management. Multiple allergies as listed on the chart. History of Светлана- Danlos syndrome, rectal cancer in 2007, COPD, GERD. Has no other medical complaints. No other modifying factors or associated signs and symptoms. PFSH Past Medical History ADHD: Yes Arthritis: No Asthma: Yes Autoimmune Disease: No Blood Disorders: No Bipolar Disorder: Yes Anxiety: Yes Depression: Yes Heart Rhythm Problems: No Cancer: Yes (THYROID,OVARIAN,BASAL CELL SKIN,SQUAMOUS CELL RECTAL) Cardiac Catheterization: Yes Cardiovascular Problems: Yes (CARDIAC CATH IN 2008) High Cholesterol: Yes Chemotherapy: Yes (NOT ACTIVELY) Chest Pain: No Congestive Heart Failure: No COPD: Yes Cerebrovascular Accident: No Diabetes: No Diminished Hearing: No Endocrine: No Gastrointestinal Disorders: Yes (pancreatitis) GERD: Yes Glaucoma: No Genitourinary: Yes (UTI; FREQUENT) Headaches: No Hepatitis: Yes (c) Hiatal Hernia: No Hypertension: Yes Immune Disorder: No Kidney Stones: No Musculoskeletal: No Neurologic: Yes Psychiatric: Yes Reproductive: No Respiratory: Yes (COPD) Integumentary: Yes (EhlersDanlos syndrome ) Immunizations Current: Yes Migraines: Yes Myocardial Infarction: No Pancreatitis: Yes Radiation Therapy: Yes Renal Failure: No Seizures: No Sickle Cell Disease: No Sleep Apnea: No Thyroid Disease: Yes Ulcer: No Tetanus Vaccination: < 5 Years PNEUMOCCOCAL Vaccine (Year): 2 Menopausal: Yes : 2 Para: 1 Miscarriage: 1 Past Surgical History Abdominal Surgery: Yes (EXPLORE LAP 1981) AICD: No Appendectomy: Yes Body Medical Devices: CHEMO PORT; (REMOVED 02/11/2011) Cardiac Surgery: No Section: Yes Cholecystectomy: Yes Coronary Artery Bypass Graft: No Coronary Stent: Yes Ear Surgery: No Endocrine Surgery: Yes (THYROIDECTOMY) Eye Surgery: No Gynecologic Surgery: Yes (BILATERAL OOPHRECTOMY,SALPINGECTOMY) Hysterectomy: Yes Insulin Pump: No Joint Replacement: Yes (RIGHT KNEE SURGERY 2001) Neurologic Surgery: Yes (HEAD INJURY WITH left ORBITAL FX SECONDARY TO HORSE KICKED PT ON FACE ) Oral Surgery: No Pacemaker: No Thoracic Surgery: No Other Surgery: Yes ( CHEMO PORT REMOVED) Social History Alcohol Use: No Tobacco Use: No Substance Use: No Allergies-Medications (Allergen,Severity, Reaction): Coded Allergies: adhesive (Unverified Allergy, Severe, BLISTERING OF SKIN, 12/03/17) aspirin (Unverified Allergy, Severe, Wheezing, 12/03/17) chlorpromazine (Unverified Allergy, Severe, CANT BREATHE, 12/03/17) meperidine (Unverified Allergy, Severe, Wheezing, 12/03/17) gabapentin (Verified Allergy, Unknown, 12/03/17) Reported Meds & Prescriptions Reported Meds & Active Scripts Active Zofran Odt (Ondansetron Odt) 4 Mg Tab 4 Mg SL Q8HR PRN Augmentin (Amoxicillin-Clavulanate) 875-125 Mg Tab 1 Tab PO BID 10 Days Flexeril (Cyclobenzaprine HCl) 10 Mg Tab 10 Mg PO TID Reported Naproxen 375 Mg Tab 375 Mg PO BID Fluoxetine (Fluoxetine HCl) 10 Mg Tab 10 Mg PO DAILY Protonix (Pantoprazole Sodium) 40 Mg Tab 40 Mg PO DAILY [place] (Hydrocodone-Acetaminophen) 10-325 Mg Tab 1 Tab PO TID PRN Zocor (Simvastatin) 40 Mg Tab 40 Mg PO DAILY Adderall Xr 24 HR (Amphetamine/Dextroamphetamine) 30 Mg Cap 30 Mg PO DAILY Once daily in the morning. Review of Systems Except as stated in HPI: all other systems reviewed are Neg Physical Exam Narrative GENERAL: Well-nourished, well-developed female patient, in no acute distress; afebrile, nontoxic-appearing SKIN: Warm and dry. HEAD: Atraumatic. Normocephalic. EYES: Pupils equal and round. No scleral icterus. No injection or drainage. ENT: Mucosa pink and moist. Airway patent. NECK: Trachea midline. CARDIOVASCULAR: Regular rate and rhythm. No murmur appreciated. RESPIRATORY: No accessory muscle use. Clear to auscultation. Breath sounds equal bilaterally. GASTROINTESTINAL: Abdomen soft, epigastric tenderness on palpation, nondistended. Hepatic and splenic margins not palpable. Bowel sounds are active 4 quadrants. No guarding. Nonrigid. No rebound tenderness. RECTAL EXAM: Exam done in the presence of a nurse. No masses or tenderness, stool is brown. Hemaprompt negative. No visualized external hemorrhoids. An irritation of the skin noted around the rectum; no active bleeding but is red. MUSCULOSKELETAL: Left ankle with minimal edema and tenderness on palpation to the lateral aspect; no obvious deformity; with full range of motion; sensory intact; without ecchymosis or erythema; 2+ pedal pulse. no obvious deformities. No clubbing. No cyanosis. No edema. NEUROLOGICAL: Awake and alert. Oriented 3. No obvious cranial nerve deficits. Motor grossly within normal limits. Normal speech. PSYCHIATRIC: Appropriate mood and affect; insight and judgment normal. Data Data Last Documented VS Vital Signs Date Time Temp Pulse Resp B/P (MAP) Pulse Ox O2 Delivery O2 Flow Rate FiO2 12/03/17 12:41 98.2 77 18 132/71 (91) 97 Orders Orders Complete Blood Count With Diff (12/03/17 12:46) Comprehensive Metabolic Panel (12/03/17 12:46) Lipase (12/03/17 12:46) Ankle, Complete (Tjt1dim) (12/03/17 ) Coag Profile (12/03/17 12:46) Pantoprazole Inj (Protonix Inj) (12/03/17 15:00) Ondansetron Inj (Zofran Inj) (12/03/17 15:00) Splint Or Brace Apply/Monitor (12/03/17 14:55) Ed Discharge Order (12/03/17 14:59) Labs Laboratory Tests Test 12/03/17 13:10 White Blood Count 11.4 TH/MM3 Red Blood Count 5.23 MIL/MM3 Hemoglobin 15.3 GM/DL Hematocrit 44.4 % Mean Corpuscular Volume 84.9 FL Mean Corpuscular Hemoglobin 29.3 PG Mean Corpuscular Hemoglobin Concent 34.5 % Red Cell Distribution Width 12.9 % Platelet Count 360 TH/MM3 Mean Platelet Volume 6.8 FL Neutrophils (%) (Auto) 83.2 % Lymphocytes (%) (Auto) 10.2 % Monocytes (%) (Auto) 5.0 % Eosinophils (%) (Auto) 1.4 % Basophils (%) (Auto) 0.2 % Neutrophils # (Auto) 9.5 TH/MM3 Lymphocytes # (Auto) 1.2 TH/MM3 Monocytes # (Auto) 0.6 TH/MM3 Eosinophils # (Auto) 0.2 TH/MM3 Basophils # (Auto) 0.0 TH/MM3 CBC Comment DIFF FINAL Differential Comment Prothrombin Time 9.7 SEC Prothromb Time International Ratio 1.0 RATIO Activated Partial Thromboplast Time 25.8 SEC Blood Urea Nitrogen 14 MG/DL Creatinine 0.53 MG/DL Random Glucose 94 MG/DL Total Protein 7.4 GM/DL Albumin 3.7 GM/DL Calcium Level 9.0 MG/DL Alkaline Phosphatase 138 U/L Aspartate Amino Transf (AST/SGOT) 20 U/L Alanine Aminotransferase (ALT/SGPT) 27 U/L Total Bilirubin 1.4 MG/DL Sodium Level 141 MEQ/L Potassium Level 3.9 MEQ/L Chloride Level 107 MEQ/L Carbon Dioxide Level 26.1 MEQ/L Anion Gap 8 MEQ/L Estimat Glomerular Filtration Rate 119 ML/MIN Lipase 103 U/L [facility] Medical Decision Making Medical Screen Exam Complete: Yes Emergency Medical Condition: Yes Medical Record Reviewed: Yes Differential Diagnosis Ankle sprain, ankle injury, GI bleed, ulcer, rash Narrative Course 57-year-old female with left ankle injury and epigastric abdominal pain. CBC, coags, CMP, lipase were ordered in triage are unremarkable. Hemoccult negative. Left ankle x-ray with no acute findings. I discussed patient with Dr. Khan, my attending physician, and he agrees with my plan of care. Protonix and Zofran administered in the ER. Patient provided ankle splint for support. She has a walker at home. Has a cane for support. Instructed patient to follow -up with orthopedics and gastroenterology. Instructed patient to stop taking naproxen. Zofran prescribed for home. Instructed patient to follow up with primary care provider. Patient verbalizes understanding and agreement with treatment plan. Patient is medically cleared and stable for discharge. Discussed reasons to return to the emergency department. Patient agrees with treatment plan. The patients vital signs are stable and the patient is stable for outpatient follow-up and treatment. Patient discharged home, stable and in no acute distress. Diagnosis Primary Impression: Abdominal pain Qualified Codes: R10.13 - Epigastric pain Additional Impression: Left ankle injury Qualified Codes: S99.912A - Unspecified injury of left ankle, initial encounter Referrals: [facility] Primary Care Physician Patient Instructions: Abdominal Pain (ED), Ankle Sprain (ED), General Instructions Additional Instructions: Stop taking naproxen Zofran as directed and as needed for nausea/vomiting Ankle brace as needed for support Cane/crutches as needed for support Follow-up with gastroenterology Follow-up with orthopedics Follow-up with primary care provider Return to the emergency department immediately for worsening of symptoms Med/Other Pt SpecificInfo: Prescription(s) given Scripts Ondansetron Odt (Zofran Odt) 4 Mg Tab 4 MG SL Q8HR Y for Nausea/Vomiting, #6 TAB 0 Refills Prov: Mackenzie Bruno 12/03/17 Disposition: 01 DISCHARGE HOME Condition: Stable Mackenzie Bruno Dec 03, 2017 14:38
[2017-12-03] MEDS ORDERED: ZOFR4TAB3 SL (14:59)
[2017-12-03] MEDS ORDERED: ONDANSETRON HCL 4 MG/2 ML VIAL IV PUSH ONE (15:00)
[2017-12-03] MEDS ORDERED: PANTOPRAZOLE SODIUM 40 MG VIAL IV PUSH ONE (15:00)
== END 2017-12-03 15:21 | disposition home or self-care (01) ==
LOC: NEPD 12:39
DX: R10.13 Epigastric pain (principal); S99.912A Unspecified injury of left ankle, initial encounter; R11.2 Nausea with vomiting, unspecified; K21.9 Gastro-esophageal reflux disease without esophagitis; J44.9 Chronic obstructive pulmonary disease, unspecified; Q79.6 Ehlers-Danlos syndromes; X58.XXXA Exposure to other specified factors, initial encounter; Y93.01 Activity, walking, marching and hiking; Z90.49 Acquired absence of other specified parts of digestive tract; Z85.048 Personal history of other malignant neoplasm of rectum, rectosigmoid junction, and anus
CPT/HCPCS: 73610; 80053; 83690; 85025; 85610; 85730; 96374; 96375; 99284; C9113; J2405; L1906

== ENCOUNTER 2018-04-02 06:43 | Observation (INO) | payer MEDICAID ==
[2018-04-02] VITALS (7 sets, daily range): BP systolic 127–188; BP diastolic 63–84; PULSE 90–103; RESP 17–20; TEMP 98.4–98.6; O2SAT 97–99
[~2018-04-02] VITALS: Ht 165.1 cm; Wt 63.5 kg
[~2018-04-02 06:43] MED LIST changes: +NAPR-855 PO; +ZOFR4TAB3 SL
[2018-04-02] MEDS ORDERED: SODIUM CHLORID 0.9% 500 ML INJ 500 ML IV ONE (07:30)
[2018-04-02] MEDS ORDERED: SODIUM CHLORIDE 0.9% FLUSH 10 ML FLUSH IV FLUSH PRN ×2 (07:30→13:15)
[2018-04-02] MEDS ORDERED: METOCLOPRAMIDE HCL 10 MG/2 ML VIAL IV PUSH ONE (07:30)
[2018-04-02 07:56] LABS: BASOPHIL % 0.2 % (0.0-2.0); EOSINOPHIL # 0.2 TH/MM3 (0-0.4); HEMATOCRIT 43.8 % (35.0-46.0); HEMOGLOBIN 15.1 GM/DL (11.6-15.3); LYMPHOCYTE # 1.8 TH/MM3 (1.0-4.8); MEAN CELL VOLUME 84.4 FL (80.0-100.0); MEAN CORPUSCULAR HGB CONC 34.4 % (32.0-36.0); MEAN PLATELET VOLUME 6.2 FL (7.0-11.0); MONO % 7.4 % (0.0-8.0); MONOCYTE # 1.4 TH/MM3 (0-0.9); NEUT % 81.4 % (16.0-70.0); PLATELET COUNT 322 TH/MM3 (150-450); RED BLOOD COUNT 5.19 MIL/MM3 (4.00-5.30); RED CELL DISTRIBUTION WIDTH 13.6 % (11.6-17.2); WHITE BLOOD COUNT 18.4 TH/MM3 (4.0-11.0)
[2018-04-02 08:09] LABS: PROTHROMBIN TIME - PATIENT 9.7 SEC (9.8-11.6)
[2018-04-02 08:24] LABS: ALBUMIN 3.6 GM/DL (3.4-5.0); ALT (GPT) 54 U/L (10-53); AST (GOT) 21 U/L (15-37); BLOOD UREA NITROGEN 16 MG/DL (7-18); CALCIUM 9.1 MG/DL (8.5-10.1); CHLORIDE 108 MEQ/L (98-107); CREATININE 0.72 MG/DL (0.50-1.00); GLOMERULAR FILTRATION RATE 83 ML/MIN (>89); GLUCOSE,RANDOM 107 MG/DL (74-106); SODIUM (NA) 142 MEQ/L (136-145)
[2018-04-02 08:26] LABS: ALKALINE PHOSPHATASE 113 U/L (45-117); TOTAL BILIRUBIN ADULT 0.9 MG/DL (0.2-1.0); TOTAL PROTEIN 7.6 GM/DL (6.4-8.2)
[2018-04-02] MEDS ORDERED: PROMETHAZINE INJ 25 MG/ML VIAL IM ONE (08:30)
[2018-04-02] MEDS ORDERED: IOHEXOL 350 MG/ML 10 ML VIAL (for RAD DIAG) IVCONTRAST ONE (08:59)
--- NOTE | 2018-04-02 09:43 | RADRPT ---
EXAM DATE: 04/02/2018 9:10 AM EDT AGE/SEX: 57 years / Female INDICATIONS: Abdominal pain. Vomiting. CLINICAL DATA: This is the patient's initial encounter. Patient reports that signs and symptoms have been present for 1 day and indicates a pain score of 5/10. MEDICAL/SURGICAL HISTORY: Carcinoma, rectal. Carcinoma, ovarian. Chronic obstructive pulmonar y disease. Pancreatitis. Hypertension. Coronary artery stent. Appendectomy. Cholecystectomy. Hy sterectomy. Spinal surgery. ORAL CONTRAST: No oral contrast ingested. RADIATION DOSE: 6.76 CTDI (mGy) COMPARISON: [facility] – [place], [place], CT ABDOMEN & PELVIS W CONTRAST, 03/02/2013. . TECHNIQUE: Multiple contiguous axial images were obtained through the abdomen and pelvis following b olus infusion of 100 ml Omnipaque 350 (iohexol) nonionic water-soluble contrast as a single exam do se. No oral contrast ingested. Using automated exposure control and adjustment of the mA and/or kV a ccording to patient size, radiation dose was kept as low as reasonably achievable to obtain optimal d iagnostic quality images. DICOM format image data is available electronically for review and compari son. FINDINGS: Lower Lungs: There is a smooth round 0.7 cm nodule seen in the left lower lobe and a smaller 0.4 cm n odule in the lateral right lower lobe. There is a tiny 3 mm nodule in the left lower lobe. The larges t nodule was clearly present previously. The smaller nodules are more difficult to clearly identify o n the prior exam. Liver: The liver dome shows diffuse decreased attenuation. Clips are seen in the report from prior ch olecystectomy. Spleen: Homogeneous density without enlargement. Pancreas: Unremarkable without mass or calcification. Kidneys: Normal in size and shape. No evidence of mass or hydronephrosis. Streak artifact seen throu gh the kidneys from the surgical hardware in the thoracolumbar region. Adrenal Glands: Unremarkable. Aorta: The aorta and proximal iliac vessels are grossly unremarkable without aneurysmal dilation. Bowel/Mesentery: The bowel loops are grossly unremarkable. The cecum and sigmoid colon have a normal configuration. Abdominal Wall: Intact. Retroperitoneum: No evidence of adenopathy in the retrocrural, para-aortic, or deep pelvic regions. Bladder: Contours are smooth. Reproductive Organs: The patient is status post hysterectomy. Inguinal: The inguinal region is unremarkable without evidence of adenopathy. Bony Structures: There is surgical hardware with a metallic struts seen at the L1 level with surgica l hardware extending from T12 through L2. There is chronic change in the lower thoracic and upper lum bar spine. CONCLUSION: 1. No acute abnormality seen. 2. Several small nodule seen in the lower lungs. The largest nodule was clearly present in 2012. It is thought the small nodules that were not previously seen could be followed with a noncontrast CT ex amination in 6 months. 3. Chronic change with postoperative hardware in the thoracolumbar region. Electronically signed by: Clyde Queen MD 04/02/2018 9:41 AM EDT
[2018-04-02 11:27] LABS: BACTERIA, URINE RARE /hpf; BILIRUBIN, URINE NEG (NEG); BLOOD, URINE NEG (NEG); GLUCOSE,URINE NEG (NEG); KETONE, URINE NEG (NEG); MUCUS URINE FEW /lpf (OCC); NITRITE,URINE NEG (NEG); URINE COLOR Straw (YELLW/STRAW); URINE LEUKOCYTE ESTERASE NEG (NEG)
[2018-04-02] MEDS ORDERED: ACETAMINOPHEN/HYDROcodone 325 MG/10 MG TAB PO ONE (11:45)
--- NOTE | 2018-04-02 12:18 | PD ---
HPI Chief Complaint: Abdominal Pain Time Seen by Provider: 07:05 Travel History International Travel<30 days: No Contact w/Intl Traveler<30days: No Traveled to known affect area: No History of Present Illness HPI Patient is a 57 year old female who comes in complaining of nausea, vomiting, abdominal pain. She says the pain is in her RUQ. She says the vomiting started over night. She takes Zofran at home with no relief of her symptoms. She denies fever or chills. She denies cough or cold symptoms. She denies any urinary symptoms. Severity is moderate. PFSH Past Medical History ADHD: Yes Arthritis: No Asthma: Yes Autoimmune Disease: No Blood Disorders: No Bipolar Disorder: Yes Anxiety: Yes Depression: Yes Heart Rhythm Problems: No Cancer: Yes (THYROID,OVARIAN,BASAL CELL SKIN,SQUAMOUS CELL RECTAL) Cardiac Catheterization: Yes Cardiovascular Problems: Yes (CARDIAC CATH IN 2008) High Cholesterol: Yes Chemotherapy: Yes (NOT ACTIVELY) Chest Pain: No Congestive Heart Failure: No COPD: Yes Cerebrovascular Accident: No Diabetes: No Diminished Hearing: No Endocrine: No Gastrointestinal Disorders: Yes (pancreatitis) GERD: Yes Glaucoma: No Genitourinary: Yes (UTI; FREQUENT) Headaches: No Hepatitis: Yes (c) Hiatal Hernia: No Hypertension: Yes Immune Disorder: No Kidney Stones: No Musculoskeletal: No Neurologic: Yes Psychiatric: Yes Reproductive: No Respiratory: Yes (COPD) Integumentary: Yes (EhlersDanlos syndrome ) Immunizations Current: Yes Migraines: Yes Myocardial Infarction: No Pancreatitis: Yes Radiation Therapy: Yes Renal Failure: No Seizures: No Sickle Cell Disease: No Sleep Apnea: No Thyroid Disease: Yes Ulcer: No PNEUMOCCOCAL Vaccine (Year): 2 ?: Not Menopausal: Yes : 2 Para: 1 Miscarriage: 1 Past Surgical History Abdominal Surgery: Yes (EXPLORE LAP 1981) AICD: No Appendectomy: Yes Body Medical Devices: CHEMO PORT; (REMOVED 02/11/2011) Cardiac Surgery: No Section: Yes Cholecystectomy: Yes Coronary Artery Bypass Graft: No Coronary Stent: Yes Ear Surgery: No Endocrine Surgery: Yes (THYROIDECTOMY) Eye Surgery: No Gynecologic Surgery: Yes (BILATERAL OOPHRECTOMY,SALPINGECTOMY) Hysterectomy: Yes Insulin Pump: No Joint Replacement: Yes (RIGHT KNEE SURGERY 2001) Neurologic Surgery: Yes (HEAD INJURY WITH left ORBITAL FX SECONDARY TO HORSE KICKED PT ON FACE ) Oral Surgery: No Pacemaker: No Thoracic Surgery: No Other Surgery: Yes ( CHEMO PORT REMOVED) Social History Alcohol Use: No Tobacco Use: No Substance Use: No Allergies-Medications (Allergen,Severity, Reaction): Coded Allergies: adhesive (Unverified Allergy, Severe, BLISTERING OF SKIN, 04/02/18) aspirin (Unverified Allergy, Severe, Wheezing, 04/02/18) chlorpromazine (Unverified Allergy, Severe, CANT BREATHE, 04/02/18) meperidine (Unverified Allergy, Severe, Wheezing, 04/02/18) gabapentin (Verified Allergy, Unknown, 04/02/18) Reported Meds & Prescriptions Reported Meds & Active Scripts Active Zofran Odt (Ondansetron Odt) 4 Mg Tab 4 Mg SL Q8HR PRN Flexeril (Cyclobenzaprine HCl) 10 Mg Tab 10 Mg PO TID Reported Naproxen 375 Mg Tab 375 Mg PO BID Fluoxetine (Fluoxetine HCl) 10 Mg Tab 10 Mg PO DAILY Protonix (Pantoprazole Sodium) 40 Mg Tab 40 Mg PO DAILY [place] (Hydrocodone-Acetaminophen) 10-325 Mg Tab 1 Tab PO TID PRN Zocor (Simvastatin) 40 Mg Tab 40 Mg PO DAILY Adderall Xr 24 HR (Amphetamine/Dextroamphetamine) 30 Mg Cap 30 Mg PO DAILY Once daily in the morning. Review of Systems Except as stated in HPI: all other systems reviewed are Neg General / Constitutional: No: Fever, Chills HENT: No: Headaches, Lightheadedness Gastrointestinal: Positive: Nausea, Vomiting, Abdominal Pain Musculoskeletal: No: Myalgias, Edema Skin: No Change in Pigmentation Neurologic: No: Weakness, Dizziness, Syncope Physical Exam Narrative GENERAL: Awake and alert, in no acute distress. SKIN: Focused skin assessment warm/dry. HEAD: Atraumatic. Normocephalic. EYES: Pupils equal and round. No scleral icterus. No injection or drainage. ENT: No nasal bleeding or discharge. Mucous membranes pink and moist. NECK: Trachea midline. No JVD. CARDIOVASCULAR: Regular rate and rhythm. No murmur appreciated. RESPIRATORY: No accessory muscle use. Clear to auscultation. Breath sounds equal bilaterally. GASTROINTESTINAL: Abdomen soft, nondistended. Mild tenderness to the RUQ. MUSCULOSKELETAL: No obvious deformities. No clubbing. No cyanosis. No edema. NEUROLOGICAL: Awake and alert. No obvious cranial nerve deficits. Motor grossly within normal limits. Normal speech. PSYCHIATRIC: Appropriate mood and affect; insight and judgment normal. Data Data Last Documented VS Vital Signs Date Time Temp Pulse Resp B/P (MAP) Pulse Ox O2 Delivery O2 Flow Rate FiO2 04/02/18 11:05 94 19 152/81 (104) 97 Room Air 04/02/18 06:49 98.4 Orders Orders Complete Blood Count With Diff (04/02/18 07:24) Comprehensive Metabolic Panel (04/02/18 07:24) Lipase (04/02/18 07:24) Lactic Acid (04/02/18 07:24) Prothrombin Time / Inr (Pt) (04/02/18 07:24) Act Partial Throm Time (Ptt) (04/02/18 07:24) Urinalysis - C+S If Indicated (04/02/18 07:24) Ct Abd/Pel W Iv Contrast(Rout) (04/02/18 07:24) Iv Access Insert/Monitor (04/02/18 07:24) Ecg Monitoring (04/02/18 07:24) Oximetry (04/02/18 07:24) Sodium Chloride 0.9% Flush (Ns Flush) (04/02/18 07:30) Sodium Chlorid 0.9% 500 Ml Inj (Ns 500 M (04/02/18 07:30) Metoclopramide Inj (Reglan Inj) (04/02/18 07:30) Promethazine Inj (Phenergan Inj) (04/02/18 08:30) Iohexol 350 Inj (Omnipaque 350 Inj) (04/02/18 08:59) Electrocardiogram (04/02/18 ) Troponin I (04/02/18 10:18) Acetamin-Hydrocod 325-10 Mg ([place] 10-32 (04/02/18 11:45) Admit Order (Ed Use Only) (04/02/18 ) Labs Laboratory Tests Test 04/02/18 07:40 04/02/18 10:50 White Blood Count 18.4 TH/MM3 Red Blood Count 5.19 MIL/MM3 Hemoglobin 15.1 GM/DL Hematocrit 43.8 % Mean Corpuscular Volume 84.4 FL Mean Corpuscular Hemoglobin 29.0 PG Mean Corpuscular Hemoglobin Concent 34.4 % Red Cell Distribution Width 13.6 % Platelet Count 322 TH/MM3 Mean Platelet Volume 6.2 FL Neutrophils (%) (Auto) 81.4 % Lymphocytes (%) (Auto) 10.0 % Monocytes (%) (Auto) 7.4 % Eosinophils (%) (Auto) 1.0 % Basophils (%) (Auto) 0.2 % Neutrophils # (Auto) 15.0 TH/MM3 Lymphocytes # (Auto) 1.8 TH/MM3 Monocytes # (Auto) 1.4 TH/MM3 Eosinophils # (Auto) 0.2 TH/MM3 Basophils # (Auto) 0.0 TH/MM3 CBC Comment DIFF FINAL Differential Comment Prothrombin Time 9.7 SEC Prothromb Time International Ratio 1.0 RATIO Activated Partial Thromboplast Time 24.3 SEC Blood Urea Nitrogen 16 MG/DL Creatinine 0.72 MG/DL Random Glucose 107 MG/DL Total Protein 7.6 GM/DL Albumin 3.6 GM/DL Calcium Level 9.1 MG/DL Alkaline Phosphatase 113 U/L Aspartate Amino Transf (AST/SGOT) 21 U/L Alanine Aminotransferase (ALT/SGPT) 54 U/L Total Bilirubin 0.9 MG/DL Sodium Level 142 MEQ/L Potassium Level 3.6 MEQ/L Chloride Level 108 MEQ/L Carbon Dioxide Level 25.0 MEQ/L Anion Gap 9 MEQ/L Estimat Glomerular Filtration Rate 83 ML/MIN Lactic Acid Level 1.4 mmol/L Troponin I LESS THAN 0.02 NG/ML Lipase 158 U/L Urine Color Straw Urine Turbidity CLEAR Urine pH 7.0 Urine Specific [place] GREATER THAN 1.060 Urine Protein NEG mg/dL Urine Glucose (UA) NEG mg/dL Urine Ketones NEG mg/dL Urine Occult Blood NEG Urine Nitrite NEG Urine Bilirubin NEG Urine Urobilinogen LESS THAN 2 mg/dL Urine Leukocyte Esterase NEG Urine RBC 1 /hpf Urine Bacteria RARE /hpf Urine Mucus FEW /lpf Microscopic Urinalysis Comment CULT NOT INDICATED MDM Medical Decision Making Medical Screen Exam Complete: Yes Emergency Medical Condition: Yes Medical Record Reviewed: Yes Interpretation(s) ECG shows sinus rhythm at a rate of 89, no ST elevation or depression, normal intervals Differential Diagnosis Gastritis versus GERD versus colitis versus cholecystitis versus ACS Narrative Course Patient is a 57-year-old female comes in complaining of nausea and vomiting of the quadrant tenderness. IV established, labs sent. Labs show minor elevation in ALT. White blood cell count is 18.9, this is likely from vomiting. CT abdomen pelvis performed shows no acute abnormalities. Last 24 hours Impressions Abdomen/Pelvis CT 04/02/18 0725 Signed Impressions: CONCLUSION: 1. No acute abnormality seen. 2. Several small nodule seen in the lower lungs. The largest nodule was clearl y present in 2012. It is thought the small nodules that were not previously see n could be followed with a noncontrast CT examination in 6 months. 3. Chronic change with postoperative hardware in the thoracolumbar region. While patient was here, patient started to complain of chest pain. She says the pain is on the left side of her chest and she says it is "her heart." She is concerned because her grandmother at this age of a heart attack. She says she has been having some chest pains that have been coming and going, but it is worse now. This started after her vomiting had improved. She will be placed in chest pain center for further management. Diagnosis Primary Impression: Chest pain Qualified Codes: R07.9 - Chest pain, unspecified Additional Impression: Nausea & vomiting Qualified Codes: R11.2 - Nausea with vomiting, unspecified Admitting Information Admitting Physician Requests: Cadence Watson MD Apr 02, 2018 12:17
--- NOTE | 2018-04-02 12:48 | RADRPT ---
EXAM DATE: 04/02/2018 12:41 PM EDT AGE/SEX: 57 years / Female INDICATIONS: Chest pain CLINICAL DATA: This is the patient's initial encounter. Patient reports that signs and symptoms have been present for 1 day and indicates a pain score of 2/10. MEDICAL/SURGICAL HISTORY: . Carcinoma, rectal. Carcinoma, ovarian. Chronic obstructive pulmona ry disease. Pancreatitis. Hypertension. Coronary artery stent. Appendectomy. Cholecystectomy. Hystere ctomy. Spinal surgery . Coronary artery stent. Appendectomy. Cholecystectomy. Hysterectomy. Spinal s urgery [place] [facility] [place]. . FINDINGS: AP view of the chest demonstrates a normal-sized cardiac silhouette. EKG lines overlie the patient. N o pleural effusion, airspace consolidation, or pneumothorax is identified. Bones and soft tissues dem onstrate no acute finding. The lumbar spine hardware is partially visualized. CONCLUSION: No acute cardiopulmonary abnormality is identified. Electronically signed by: Clyde Hunter MD 04/02/2018 12:47 PM EDT
[2018-04-02] MEDS ORDERED: PANTOPRAZOLE SOD 40 MG DELAYED RELEASE TAB PO ONE (13:00)
[2018-04-02] MEDS ORDERED: ONDANSETRON ODT 4 MG TAB PO PRN (13:15)
[2018-04-02] MEDS ORDERED: ACETAMINOPHEN 500 MG CPLT PO PRN (13:15)
[2018-04-02] MEDS ORDERED: NITROGLYCERIN 0.4 MG SL 25 TABS/BTL SL PRN (13:15)
--- NOTE | 2018-04-02 14:19 | HHI.HP ---
HPI Primary Care Physician Herson Gillespie D.O. Chief Complaint Abdominal pain History of Present Illness 57-year-old female with history of hypertension, COPD, and hyperlipidemia presents emergency room for further evaluation of abdominal pain, nausea, and frequent vomiting. Zofran and Phenergan given in the ER resolved nausea and vomiting. Feeling much better. Developed chest pain while in ER. Location left anterior chest. Characterized as tightness and squeezing. No radiation. Duration 5 minutes. Associated symptoms included dyspnea. Denies any nausea, vomiting, or diaphoresis. Endorses similar pain in the past for a few months. Stating "happening a lot lately, 1-2 times weekly." Nonexertional component. There is an emotional component, stating "every time I get angry I get chest pain." No current chest pain. No known coronary artery disease. Endorses cardiac catheterization 5-6 years ago in [facility] reportedly normal. Dorsal she is nervous regarding have an MA as her grandmother age 57. Review of Systems General: No fatigue, weakness, fever, or chills. HEENT: No JACOBS, no vision changes, no nasal congestion or drainage, no dysphasia CV: As stated above. No current chest pain. RESP: No SOB, cough, or wheeze GI: No nausea, vomiting, bowel changes, diarrhea, constipation, pain, distention , melena, or blood in the stool. : No dysuria, urgency, frequency EXT: No lower leg edema MS: No discomfort, or change in ROM NEURO: No change in memory, dizziness, difficulty with balance, LOC, motor/ sensory deficits PSYCH: No anxiety, depression, or suicidal ideation SKIN: No rashes, no concerning lesions Past Family Social History Allergies: Coded Allergies: adhesive (Unverified Allergy, Severe, BLISTERING OF SKIN, 04/02/18) aspirin (Unverified Allergy, Severe, Wheezing, 04/02/18) chlorpromazine (Unverified Allergy, Severe, CANT BREATHE, 04/02/18) meperidine (Unverified Allergy, Severe, Wheezing, 04/02/18) gabapentin (Verified Allergy, Unknown, 04/02/18) Past Medical History COPD, GERD, hyperlipidemia, hypertension, basal cell cancer, ADHD, anxiety, pancreatitis Past Surgical History , thyroidectomy, bilateral oophorectomy, salpingectomy, right knee surgery 2001, head injury with left orbital fx, lumbar surgery, appendectomy Reported Medications Reported Meds & Active Scripts Active Zofran Odt (Ondansetron Odt) 4 Mg Tab 4 Mg SL Q8HR PRN Flexeril (Cyclobenzaprine HCl) 10 Mg Tab 10 Mg PO TID Reported Naproxen 375 Mg Tab 375 Mg PO BID Fluoxetine (Fluoxetine HCl) 10 Mg Tab 10 Mg PO DAILY Protonix (Pantoprazole Sodium) 40 Mg Tab 40 Mg PO DAILY [place] (Hydrocodone-Acetaminophen) 10-325 Mg Tab 1 Tab PO TID PRN Zocor (Simvastatin) 40 Mg Tab 40 Mg PO DAILY Adderall Xr 24 HR (Amphetamine/Dextroamphetamine) 30 Mg Cap 30 Mg PO DAILY Once daily in the morning. Active Ordered Medications Current Medications Medications (Trade) Dose Ordered Sig/Irena Route Start Time Stop Time Status Last Admin (NS Flush) 2 ml UNSCH PRN IV FLUSH 04/02/18 13:15 (NS Flush) 2 ml BID IV FLUSH 04/02/18 21:00 (Tylenol) 500 mg Q4H PRN PO 04/02/18 13:15 (Nitrostat Sl) 0.4 mg Q5M PRN SL 04/02/18 13:15 (Zofran Odt) 4 mg Q6H PRN PO 04/02/18 13:15 Family History Noncontributory for early onset cardiovascular disease. Social History Lifelong nonsmoker. Denies any alcohol or illegal drug use. . Past cardiac testing 09/08/2009 cardiac catheterization (Dr. Barragan)-Normal coronary arteries. Physical Exam Vital Signs Vital Signs Date Time Temp Pulse Resp B/P (MAP) Pulse Ox O2 Delivery O2 Flow Rate FiO2 04/02/18 13:20 90 17 157/82 (107) 97 Room Air 04/02/18 11:05 94 19 152/81 (104) 97 Room Air 04/02/18 09:10 94 17 146/84 (104) 97 Room Air 04/02/18 07:05 97 19 179/81 (113) 99 Room Air 04/02/18 07:05 99 Room Air 04/02/18 06:49 98.4 103 20 188/84 (118) 98 Physical Exam GENERAL: Alert WN, WD, NAD, pleasant, female who appears older than stated age HEAD: NC, AT EYES: Sclera clear, conjunctiva without injection, pupils equal and round ENT: Mucous membranes pink and moist, no nasal discharge or bleeding, poor dentition, missing teeth NECK: Supple, no masses, trachea midline CV: RRR, without murmur, rub, or gallop, no JVD, S1-S2 no S3-S4. No carotid bruits. Chest wall nontender with palpation RESP: Clear lungs throughout bilateral, no crackles, wheeze, rhonchi, symmetrical chest rise, nonlabored, able to speak in full sentences ABD: Soft, NT, ND, no masses, positive bowel tones EXT: Pulses +2x4, no dependent edema MS: Normal tone x4 extremities, nontender, no obvious deformities, full range of motion NEURO: CN II through CN XII grossly intact, motor strength 5/5 PSYCH: A+O x3, pleasant affect, appropriate speech, mood, insight and judgment SKIN: Normal turgor, normal texture Laboratory Laboratory Tests Test 04/02/18 07:40 04/02/18 10:50 04/02/18 13:00 White Blood Count 18.4 Red Blood Count 5.19 Hemoglobin 15.1 Hematocrit 43.8 Mean Corpuscular Volume 84.4 Mean Corpuscular Hemoglobin 29.0 Mean Corpuscular Hemoglobin Concent 34.4 Red Cell Distribution Width 13.6 Platelet Count 322 Mean Platelet Volume 6.2 Neutrophils (%) (Auto) 81.4 Lymphocytes (%) (Auto) 10.0 Monocytes (%) (Auto) 7.4 Eosinophils (%) (Auto) 1.0 Basophils (%) (Auto) 0.2 Neutrophils # (Auto) 15.0 Lymphocytes # (Auto) 1.8 Monocytes # (Auto) 1.4 Eosinophils # (Auto) 0.2 Basophils # (Auto) 0.0 CBC Comment DIFF FINAL Differential Comment Prothrombin Time 9.7 Prothromb Time International Ratio 1.0 Activated Partial Thromboplast Time 24.3 Blood Urea Nitrogen 16 Creatinine 0.72 Random Glucose 107 Total Protein 7.6 Albumin 3.6 Calcium Level 9.1 Alkaline Phosphatase 113 Aspartate Amino Transf (AST/SGOT) 21 Alanine Aminotransferase (ALT/SGPT) 54 Total Bilirubin 0.9 Sodium Level 142 Potassium Level 3.6 Chloride Level 108 Carbon Dioxide Level 25.0 Anion Gap 9 Estimat Glomerular Filtration Rate 83 Lactic Acid Level 1.4 Troponin I LESS THAN 0.02 Lipase 158 Urine Color Straw Urine Turbidity CLEAR Urine pH 7.0 Urine Specific [place] GREATER THAN 1.060 Urine Protein NEG Urine Glucose (UA) NEG Urine Ketones NEG Urine Occult Blood NEG Urine Nitrite NEG Urine Bilirubin NEG Urine Urobilinogen LESS THAN 2 Urine Leukocyte Esterase NEG Urine RBC 1 Urine Bacteria RARE Urine Mucus FEW Microscopic Urinalysis Comment CULT NOT INDICATED Result Diagram: 04/02/18 0740 04/02/18 0740 Imaging Last 48 hours Impressions Abdomen/Pelvis CT 04/02/18 0724 Signed Impressions: CONCLUSION: 1. No acute abnormality seen. 2. Several small nodule seen in the lower lungs. The largest nodule was clearl y present in 2012. It is thought the small nodules that were not previously see n could be followed with a noncontrast CT examination in 6 months. 3. Chronic change with postoperative hardware in the thoracolumbar region. Chest X-Ray 04/02/18 0000 Signed Impressions: CONCLUSION: No acute cardiopulmonary abnormality is identified. Course EKG 1st and 2 nd EKG NSR, diffuse minimal st depression Caprini VTE Risk Assessment Caprini VTE Risk Assessment: No/Low Risk (score <= 1) Caprini Risk Assessment Model Point Value = 1 Point Value = 2 Point Value = 3 Point Value = 5 Age 41-60 Minor surgery BMI > 25 kg/m2 Swollen legs Varicose veins or History of unexplained or recurrent spontaneous Oral contraceptives or hormone replacement Sepsis (< 1 month) Serious lung disease, including pneumonia (< 1 month) Abnormal pulmonary function Acute myocardial infarction Congestive heart failure (< 1 month) History of inflammatory bowel disease Medical patient at bed rest Age 61-74 Arthroscopic surgery Major open surgery (> 45 min) Laparoscopic surgery (> 45 min) Malignancy Confined to bed (> 72 hours) Immobilizing plaster cast Central venous access Age >= 75 History of VTE Family history of VTE Factor V Leiden Prothrombin [id number] Lupus anticoagulant Anticardiolipin antibodies Elevated serum homocysteine Heparin-induced thrombocytopenia Other congenital or acquired thrombophilia Stroke (< 1 month) Elective arthroplasty Hip, pelvis, or leg fracture Acute spinal cord injury (< 1 month) Prophylaxis Regimen Total Risk Factor Score Risk Level Prophylaxis Regimen 0-1 Low Early ambulation 2 Moderate Order ONE of the following: *Sequential Compression Device (SCD) *Heparin 5000 units SQ BID 3-4 Higher Order ONE of the following medications: *Heparin 5000 units SQ TID *Enoxaparin/Lovenox 40 mg SQ daily (WT < 150 kg, CrCl > 30 mL/min) *Enoxaparin/Lovenox 30 mg SQ daily (WT < 150 kg, CrCl > 10-29 mL/min) *Enoxaparin/Lovenox 30 mg SQ BID (WT < 150 kg, CrCl > 30 mL/min) AND/OR *Sequential Compression Device (SCD) 5 or more Highest Order ONE of the following medications: *Heparin 5000 units SQ TID (Preferred with Epidurals) *Enoxaparin/Lovenox 40 mg SQ daily (WT < 150 kg, CrCl > 30 mL/min) *Enoxaparin/Lovenox 30 mg SQ daily (WT < 150 kg, CrCl > 10-29 mL/min) *Enoxaparin/Lovenox 30 mg SQ BID (WT < 150 kg, CrCl > 30 mL/min) AND *Sequential Compression Device (SCD) Assessment and Plan Assessment and Plan #1 Atypical chest pain-admitted to chest pain center. Ruled out with 2 sets of EKGs and cardiac enzymes. Seen and evaluated by Dr. Oscar Rojas. Patient has not ate or had caffeine today. Proceed with Lexiscan today. If unremarkable , will discharge later this evening. #2 Abdominal pain-no acute findings, imaging unremarkable, nausea and vomiting resolved. Follow up with PCP upon discharge. Lucinda Pastor Apr 02, 2018 14:19
[2018-04-02 14:20] LABS: TROPONIN I LESS THAN 0.02 NG/ML (0.02-0.05)
[2018-04-02] MEDS ORDERED: REGADENOSON INJ 0.4 MG/5 ML SYR ONE (17:12)
--- NOTE | 2018-04-02 18:36 | EKG ---
Date Performed: 04/02/2018 Time Performed: 09:29:50 PTAGE: 57 years EKG: Sinus rhythm NONSPECIFIC ST & T-WAVE ABNORMALITY BORDERLINE ECG Since the PREVIOUS TRACING , no significant change noted PREVIOUS TRACIN09/01/2016 19.55 DOCTOR: Sanjana Obrien Interpretating Date/Time 04/03/2018 09:56:15
--- NOTE | 2018-04-02 18:42 | RADRPT ---
EXAM DATE: 04/02/2018 6:32 PM EDT AGE/SEX: 57 years / Female INDICATIONS:Angina. . Chest pain and epigastric pain. CLINICAL DATA: This is the patient's initial encounter. Patient reports that signs and symptoms have been present for 1 day and indicates a pain score of 0/10. MEDICAL/SURGICAL HISTORY: Hypertension. Carcinoma, thyroid. Hypercholesterolemia. Hysterectom y. Thyroidectomy. Cholecystectomy. COMPARISON: . DOSE: 8.5 mCi Tc 99m Myoview at rest 26.4 mCi [id number] at stress 0.4 mg Lexiscan STRESS SYMPTOMS: Dyspnea and nausea. EJECTION FRACTION: 69 % TECHNIQUE: The patient underwent pharmacologic stress with infusion of prescribed dose. Continuous ECG tracing was monitored during stress. Gated SPECT imaging was performed after stress and conventi onal SPECT imaging was performed at rest. The examination was performed on a SPECT/CT scanner, both attenuation and non-corrected datasets were reviewed. FINDINGS: Distribution: The maximum perfused segment at stress is in the anterolateral wall. Perfusion Study: The pattern of perfusion at stress is within normal limits. Gated Study: There are intact wall motion and wall thickening without hypokinetic or dyskinetic segm ents. The ejection fraction is calculated at 69%. RISK CATEGORY: Low CONCLUSION: 1. No reversible defects observed to suggest acute ischemia. Electronically signed by: Eduard Smith MD 04/02/2018 6:41 PM EDT
--- NOTE | 2018-04-02 18:44 | HHI.DCPOC ---
Discharge Care Plan Diagnosis: (1) Atypical chest pain (2) Nausea & vomiting Goals to Promote Your Health * To prevent worsening of your condition and complications * To maintain your health at the optimal level Directions to Meet Your Goals Take your medications as prescribed Follow your dietary instruction Follow activity as directed Keep your appointments as scheduled Take your immunizations and boosters as scheduled If your symptoms worsen call your PCP, if no PCP go to Urgent Care Center or Emergency Room Smoking is Dangerous to Your Health. Avoid second hand smoke Call the 24-hour hour crisis hotline for domestic abuse at Lucinda Pastor Apr 02, 2018 18:44
[2018-04-02] MEDS ORDERED: SODIUM CHLORIDE 0.9% FLUSH 10 ML FLUSH IV FLUSH SCH (21:00)
--- NOTE | 2018-04-03 08:10 | EKG ---
Date Performed: 04/02/2018 Time Performed: 13:23:58 PTAGE: 57 years EKG: Sinus rhythm NONSPECIFIC ST & T-WAVE ABNORMALITY ABNORMAL ECG PREVIOUS TRACING : 04/02/2018 09.29 Since previous tracing, no significant change noted DOCTOR: Oscar Rojas Interpretating Date/Time 04/03/2018 08:08:09
--- NOTE | 2018-04-03 08:15 | TR ---
Date Performed: 04/02/2018 Time Performed: 17:31:56 DOCTOR: Oscar Rojas DRUG LIST: CLINICAL HISTORY: REASON FOR TEST: CHEST PAIN REASON FOR ENDING: OBSERVATION: CONCLUSION: COMMENTS: Lexiscan stress test was performed under standard four minute protocol. Radionuclide was injected one minute prior to ending the test. No electrocardiographic abormalities were present t o suggest ischemia. Resting ST changes were unchanged throughout study. Nuclear imaging and interpret ation are pending.
== END 2018-04-02 19:31 | disposition home or self-care (01) ==
LOC: NEPC 06:43 → NEDA 12:19 → NEPHCDU 15:54
PROVIDERS: ADMIT Internal Medicine Cardiovascular Disease; ATTEND Internal Medicine Cardiovascular Disease
DX: R07.89 Other chest pain (principal); R10.11 Right upper quadrant pain; R11.2 Nausea with vomiting, unspecified; I10 Essential (primary) hypertension; J44.9 Chronic obstructive pulmonary disease, unspecified; E78.5 Hyperlipidemia, unspecified; E89.0 Postprocedural hypothyroidism; R94.31 Abnormal electrocardiogram [ECG] [EKG]; K21.9 Gastro-esophageal reflux disease without esophagitis; Q79.6 Ehlers-Danlos syndromes; B19.20 Unspecified viral hepatitis C without hepatic coma; F31.9 Bipolar disorder, unspecified; F41.9 Anxiety disorder, unspecified; Z79.899 Other long term (current) drug therapy; Z85.850 Personal history of malignant neoplasm of thyroid; Z85.43 Personal history of malignant neoplasm of ovary; Z85.048 Personal history of other malignant neoplasm of rectum, rectosigmoid junction, and anus; Z85.828 Personal history of other malignant neoplasm of skin
CPT/HCPCS: 71045; 74177; 78452; 80053; 81001; 82550; 82552; 83605; 83690; 84484; 85025; 85610; 85730; 93005; 93017; 96361; 96372; 96374; 99285; A9502; G0378; J2550; J2765; J2785; J7040; Q9967